=== PATIENT | male | born 1940 | race Caucasian/White ===

== ENCOUNTER 2016-12-25 05:48 | Day surgery (SDC) | payer MEDICARE ==
[~2016-12-25] VITALS: Ht 182.9 cm; Wt 101.5 kg
--- NOTE | ~2016-12-25 | CATH ---
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 2. 50% mid RCA, 80% RPL-2, small 3. 80% distal Left main, 90% highly calcified ostial Circ, 70% mid LAD Diagnostic Recommendations 1. To [facility] for CABG Procedure Description The patient was brought to the diagnostic cardiac catheterization- laboratory in the fasting, non-sedated state. Informed consent was obtained in the written and verbal form after the risks and benefits were explained. The patient had no further questions and agreed to proceed. The planned puncture-incision site(s) were shaved and prepped with ChloraPrep and draped in the usual sterile manner. Conscious sedation, supplemental oxygen, and pain control medications were delivered by a registered nurse under physician guidance. Surface ECG rhythm, blood pressure measurement, and pulse oximetry were monitored throughout the procedure. Arterial access. The right radial access site was infiltrated with lidocaine. The vessel was entered with the Seldinger technique. A 6F sheath was advanced into the vessel and used for catheter placement. Selective left coronary angiography. A JL3.5 catheter was advanced into the left coronary vessel ostium under Fluoroscopic guidance. Contrast was injected by hand. Images were obtained in multiple projections. Selective right coronary angiography. A JR4 catheter was advanced into the right coronary vessel ostium under fluoroscopic guidance. Contrast was injected by hand. Images were obtained in multiple projections. Left heart catheterization. A JR 4 catheter was advanced across the aortic valve to the left ventricle under fluoroscopic guidance. Resting hemodynamics were obtained. Arterial artery hemostasis was achieved with TR band. The patient was transferred to a regular nursing floor via cart accompanied by a nurse. The patient left the laboratory in stable condition. Diagnostic Cath Status: Elective Procedure Procedure Type Diagnostic procedure:Angiography:, Coronary Angios w/[facility] Indications: Positive Nuclear: High, Hyperlipidemia, Hypertension, Tobacco use-prior and Early family history of CAD. The procedure was explained in detail to the patient. Risks, complications and alternative treatments were reviewed. Written consent was obtained. Medications Reviewed with Patient prior to Procedure. Complications: No Complication. Angiographic Findings Dominance: Right Cardiac Arteries and Lesion Findings LMCA: Abnormal. Lesion on LMCA: Distal subsection.80% stenosis . LAD: Abnormal. Lesion on Mid LAD: 70% stenosis . Lesion on Dist LAD: 60% stenosis . Lesion on 1st Diag: Proximal subsection.70% stenosis . LCx: Abnormal. Lesion on Prox CX: Ostial.95% stenosis . Lesion on Prox CX: 50% stenosis . RCA: Abnormal. Lesion on Mid RCA: 50% stenosis . Lesion on 2nd RPL: Proximal subsection.80% stenosis . Coronary Tree Procedure Data Procedure Date Date: 12/25/2016Start: 08:00 AM Entry Locations - Percutaneous access was performed through the Right Radial artery (Primary location). A 6 Fr sheath was inserted. Hemostasis was successfully obtained using a TR band. Procedure Medications Order and Administration + + +-------+-------+ !Time !Medication !Dosage !Route ! + + +-------+-------+ !12/25/2016 !Versed !2 mg !I.V. ! !08:04 AM ! ! ! ! + + +-------+-------+ !12/25/2016 !Fentanyl !50 mcg !I.V. ! !08:05 AM ! ! ! ! + + +-------+-------+ !12/25/2016 !Sodium Chloride !10 ml !I.V. ! !08:05 AM ! ! ! ! + + +-------+-------+ !12/25/2016 !SF Radial Cocktail: 200mcg Nitro, 2.5 mg ! !I.A. ! !08:22 AM !Verapamil, 5000u Heparin ! ! ! + + +-------+-------+ !12/25/2016 !Fentanyl !50 mcg !I.V. ! !08:29 AM ! ! ! ! + + +-------+-------+ Devices Used - ACATH 6F FR4 CATHETER 100CMwas used for:Right coronary angiography. - ACATH 6FR FL3.5 CATHETER 100CMwas used for:Left coronary angiography. Contrast Material - Isovue 43690 ml Fluoroscopy Time: Diagnostic: 3:06 minutes. Total: 3:06 minutes. Fluoroscopy Dose: Diagnostic: 644 mGy. Total: 644 mGy. Estimated Blood Loss: 12 ml. Medical History Performed Procedures and Imaging Results - Stress testing with SPECT MPIwas performed on 12/18/2016. Results were: Positive. Risk/Extent of ischemia was: High risk. Allergies - No known allergies. Risk Factors The patient risk factors include:treated hypercholesterolemia, treated hypertension, family history of premature CAD, last creatinine: 0.8 mg/dl, creatinine clearance: 116.71 ml/min, dyslipidemia and former tobacco use ( years not smokin). Admission Data Admission Date: 12/25/2016 Admission Time: 05:48 AM Insurance Payors: Medicare. Clinical Evaluation Leading to Procedure Diagnosed on 12/22/2016 12:00 AM. Hemodynamics Condition: Rest O2 Consumption: Estimated: 243.37Heart Rate: 57 bpm Pressures (mmHg) +-----+ + !Site !Pressure ! +-----+ + !AO !103/64 (82) ! +-----+ + !LV !103/0 ,9 ! +-----+ + !AO !117/65 (87) ! +-----+ + !LV !122/3 ,10 ! +-----+ + !AO !127/68 (96) ! +-----+ + Valve Gradients and Areas + +---------+---------+---------+ +---------+ + !Valve !Peak !Mean !Area !Index !Flow !Source ! + +---------+---------+---------+ +---------+ + !Aortic !6 !9 ! ! ! ! ! + +---------+---------+---------+ +---------+ + !Aortic !6 !9 ! ! ! ! ! + +---------+---------+---------+ +---------+ + Shunts Oxygen Values O2 Capacity 195.84 O2 Consumption 243.37 Discharge Data Discharge Date: 12/25/2016 Hospital Status: Outpatient Signatures
== END 2016-12-25 11:20 | disposition home or self-care (01) ==
LOC: SSS 05:48
PROC: 4A023N7 Measurement of Cardiac Sampling and Pressure, Left Heart, Percutaneous Approach (ICD-10-PCS; principal; 2016-12-25)
DX: I25.119 Atherosclerotic heart disease of native coronary artery with unspecified angina pectoris (principal); I10 Essential (primary) hypertension; E78.5 Hyperlipidemia, unspecified; Z87.891 Personal history of nicotine dependence; Z82.49 Family history of ischemic heart disease and other diseases of the circulatory system; E03.9 Hypothyroidism, unspecified; M10.9 Gout, unspecified; D69.6 Thrombocytopenia, unspecified; Z85.46 Personal history of malignant neoplasm of prostate; Z90.79 Acquired absence of other genital organ(s)

== ENCOUNTER → 2017-01-16 | Outpatient (CLI) | payer MEDICARE | END | disposition home or self-care (01) | LOC: RAD.S 08:00 | DX: I25.10 Atherosclerotic heart disease of native coronary artery without angina pectoris (principal); R91.1 Solitary pulmonary nodule; Z98.890 Other specified postprocedural states ==